=== PATIENT | female | born 1960 ===

== ENCOUNTER 2020-08-03 08:49 | Day surgery (SDC) | payer BC ==
--- NOTE | 2020-08-03 09:50 | NUR ---
History, Chart, Medications and Allergies reviewed before start of procedure. PT NPO, DENIES CAFFEINE USE. DENIES CHEST PAIN. DENIES US OF MEDICATIONS PRIOR TO ARRIVAL.
--- NOTE | 2020-08-03 10:30 | NUR ---
Discharge instructions reviewed with patient. Patient verbalizes understanding. Copy given to patient to take home. IV DC'D INTACT. PT ESCORTED OUT OF RADIOLOGY. NO ACUTE DISTRESS OR CHANGES.
--- NOTE | 2020-08-03 10:33 | NUR ---
2 IV ATTEMPTS BY MERNA
== END 2020-08-03 10:22 | disposition home or self-care (01) ==
LOC: CT 08:49 → ORD 08:49 → CT 09:00 → ORD 10:22
DX: R07.9 Chest pain, unspecified (principal); E78.5 Hyperlipidemia, unspecified
CPT/HCPCS: 75574; Q9967

== ENCOUNTER 2020-08-19 17:25 | Emergency (ER) | payer BC, OTHER ==
[~2020-08-19] VITALS: Ht 167.6 cm; Wt 68.0 kg
[2020-08-19 18:05] LABS: BASOPHILS ABSOLUTE AUTO 0.03 K/mm3 (0.00-0.23); BASOPHILS PERCENT AUTO 1 % (0-2); EOSINOPHILS ABSOLUTE AUTO 0.05 K/mm3 (0.00-0.68); EOSINOPHILS PERCENT AUTO 1 % (0-6); Hematocrit 42.9 % (33.0-51.0); IMMATURE GRAN ABSOLUTE AUTO 0.01 K/mm3 (0.00-0.10); IMMATURE GRAN PERCENT AUTO 0 % (0-1); LYMPHOCYTES ABSOLUTE AUTO 2.35 K/mm3 (0.84-5.20); LYMPHOCYTES PERCENT AUTO 36 % (21-46); MONOCYTES ABSOLUTE AUTO 0.39 K/mm3 (0.16-1.47); MONOCYTES PERCENT AUTO 6 % (4-13); Mean Corpuscular HGB 31.1 pg (26.0-34.0); Mean Corpuscular HGB Conc 32.6 g/dL (31.5-36.5); Mean Corpuscular Volume 95 fL (80-100); Mean Platelet Volume 10.3 fL (9.1-12.4); NEUTROPHILS ABSOLUTE AUTO 3.62 K/mm3 (1.96-9.15); NEUTROPHILS PERCENT AUTO 56 % (41-73); Platelet Count 310 K/mm3 (150-400); RDW Coefficient Variation 12.1 % (11.7-14.2); RDW Standard Deviation 43.2 fL (35.1-46.3); White Blood Cell Count 6.45 K/mm3 (4.00-11.30)
[2020-08-19 18:42] LABS: Alanine Aminotransfer (ALT/SGP 24 U/L (12-78); Albumin, Blood 3.8 g/dL (3.4-5.0); Alk Phos 92 U/L (50-136); Anion Gap 3 mmol/L (6-16); Aspartate Aminotrans (AST/SGOT 20 U/L (12-37); Bilirubin, Total 0.2 mg/dL (0.1-1.0); Blood Urea Nitrogen 19 mg/dL (8-24); Bun/Creatinine Ratio 22.5 (12.0-20.0); CO2, Blood 30 mmol/L (21-32); Calcium, Blood 8.8 mg/dL (8.5-10.1); Chloride, Blood 107 mmol/L (98-108); Creatinine, Blood 0.85 mg/dL (0.40-1.00); Globulin, Blood 3.8 g/dL (2.2-4.0); Glomerular Filtration Rate >60 (60-); Glucose, Blood 154 mg/dL (70-99); Potassium, Blood 3.8 mmol/L (3.5-5.5); Sodium, Blood 140 mmol/L (136-145); Total Protein, Blood 7.6 g/dL (6.4-8.2); Troponin I <0.015 ng/mL (0.000-0.040)
== END 2020-08-19 21:10 | disposition home or self-care (01) ==
LOC: ER 17:25
PROVIDERS: Physician Assistant
DX: R07.9 Chest pain, unspecified (principal)
CPT/HCPCS: 36415; 71046; 80053; 84484; 85025; 85379; 93005; 93010; 96374; 99284-25; J1885

== ENCOUNTER 2022-11-24 08:30 | Day surgery (SDC) | payer OTHER ==
[~2022-11-24] VITALS: Ht 167.6 cm; Wt 68.8 kg
[2022-11-24] MEDS ORDERED: IBUP200 (09:10)
[2022-11-24] MEDS ORDERED: COLLAGEN 15001 EACH (09:10)
[2022-11-24] MEDS ORDERED: Hair, Skin & N1 EACH (09:10)
[2022-11-24 11:43] VITALS: BP 114/74
--- NOTE | 2022-11-24 11:51 | NUR ---
11/24/22 1151 NICOLASA PRATT PT WAS SOMBER AND UNTALKATIVE PRE PROCEDURE AND POST OP, WHEN ASKED HOW SHE WAS FEELING BEFORE AND AFTER WAS THE SAME: SHE WAS "JUST TIRED AND WANTED TO GO HOME AND SLEEP". STATED THAT SHE DOESNT DO WELL WHEN SHE HAS TO GET UP AT 2AM. OFFERED PT MORE TIME TO RECOVER HERE AND SHE INSISTED THAT SHE WANTED TO GO HOME; "I'M FINE, JUST WANT TO SLEEP".
== END 2022-11-24 11:26 | disposition home or self-care (01) ==
LOC: ORSCSDS 08:30
PROVIDERS: Internal Medicine Gastroenterology
PROC: 0DJD8ZZ Inspection of Lower Intestinal Tract, Via Natural or Artificial Opening Endoscopic (ICD-10-PCS; principal; 2022-11-24 09:45)
DX: Z12.11 Encounter for screening for malignant neoplasm of colon (principal); K63.89 Other specified diseases of intestine; K57.30 Diverticulosis of large intestine without perforation or abscess without bleeding; K56.699 Other intestinal obstruction unspecified as to partial versus complete obstruction; K64.8 Other hemorrhoids; K59.09 Other constipation
CPT/HCPCS: J2704; J7120